=== PATIENT | female | born 1955 | race Two or more races ===

== ENCOUNTER 2024-09-29 07:00 | Outpatient (CLI) | payer OTHER ==
[~2024-09-29] VITALS: Ht 172.7 cm; Wt 84.4 kg
[2024-09-29] MEDS ORDERED: AVAPRO300 MG PO (08:45)
[2024-09-29 08:46] LABS: PH,URINE 5.5 (5.0-8.0); URINE APPEARANCE Clear; URINE BILIRRUBIN Negative (NEGATIVE); URINE BLOOD Negative; URINE COLOR Yellow; URINE GLUCOSE Negative (NEGATIVE); URINE KETONE Negative (NEGATIVE); URINE LEUKOCYTE Negative; URINE NITRATE Negative; URINE PROTEIN Negative (NEGATIVE)
[2024-09-29] MEDS ORDERED: LIPITOR40 M1 PO (08:46)
[2024-09-29] MEDS ORDERED: MONTELUKAST SODI4 M1 PO (08:46)
[2024-09-29] MEDS ORDERED: ALDACTONE25 MG PO (08:47)
[2024-09-29] MEDS ORDERED: PROAIR RESPICL90 MCG IH (08:47)
[2024-09-29] MEDS ORDERED: METFORMIN HCL500 MG (08:47)
[2024-09-29 08:49] LABS: HEMATOCRIT 32.8 % (36.0-45.00); HEMOGLOBIN 11.2 g/dL (12.0-15.00); MEAN CELL VOLUME 89.4 fL (80.00-100.00); MEAN CORPUSCULAR HEMOGLOBIN 30.4 pg (27.00-32.0); MEAN CORPUSCULAR HGB CONC 34.1 g/dl (32.0-36.0); PLATELET COUNT 257 K/uL (150-450); RED BLOOD COUNT 3.66 M/uL (4.00-6.00); RED CELL DISTRIBUTION WIDTH 14.1 % (11.5-14.5)
[2024-09-29 08:51] LABS: URINE BACTERIA 646.2 uL (0.0-1933); URINE EPITHELIAL CELLS 12.5 uL (0.0-38.8); URINE RBC 26.5 uL (0.0-20.8); URINE WBC 3.6 uL (0.0-23.2)
[2024-09-29 08:52] VITALS: BP 135/70
[2024-09-29 09:00] LABS: COVID-19 AG NEGATIVE (NEGATIVE)
[2024-09-29 09:23] LABS: INR 0.97; PARTIAL THROMBOPLASTIN TIME 26.7 SECONDS (22.0-34.0); PROTHROMBIN TIME 10.6 SECONDS (9.0-11.5)
[2024-09-29 09:31] LABS: ALBUMIN 3.7 gm/dL (3.4-5.0); BILIRUBIN TOTAL 0.85 mg/dL (0.3-1.2); CALCIUM 9.1 mg/dL (8.5-10.1); CHOL HDL RATIO 2.5 (0-5.0); CREATININE SERUM 0.83 mg/dL (0.55-1.02); GFR 67.96; GLOBULINA 3.2 G/DL (2.4-3.5); POTASSIUM 4.28 mEq/L (3.5-5.1); TOTAL PROTEIN 6.9 gm/dL (6.4-8.2)
[2024-09-29 10:10] LABS: RH POSITIVE
== END 2024-09-29 07:15 | disposition home or self-care (01) ==
LOC: RAD 07:00 → LAB 07:00 → EDSTATUS 10-06 07:45 → SURH 10-06 07:45
PROVIDERS: ATTEND Orthopaedic Surgery
DX: T84.032A Mechanical loosening of internal right knee prosthetic joint, initial encounter (principal); D64.9 Anemia, unspecified; R10.9 Unspecified abdominal pain; Z79.01 Long term (current) use of anticoagulants; N39.0 Urinary tract infection, site not specified; E78.5 Hyperlipidemia, unspecified; R05.2 Subacute cough; D68.9 Coagulation defect, unspecified; Z03.818 Encounter for observation for suspected exposure to other biological agents ruled out; Z20.828 Contact with and (suspected) exposure to other viral communicable diseases

== ENCOUNTER → 2024-10-27 07:42 | Outpatient (CLI) | payer OTHER ==
[~2024-10-27 07:42] MED LIST: ALDACTONE25 MG PO; AVAPRO300 MG PO; LIPITOR40 M1 PO; METFORMIN HCL500 MG; MONTELUKAST SODI4 M1 PO; PROAIR RESPICL90 MCG IH
[2024-10-27 08:17] LABS: BASO % 0.7 % (0.1-1.2); EOS # 0.24 (0.04-0.54); EOS % 5.9 % (0.7-7.0); HEMOGLOBIN 10.9 g/dL (11.2-15.7); LYMPH # 1.11 (1.18-3.74); LYMPH % 27.1 % (19.3-53.1); MEAN CORPUSCULAR HEMOGLOBIN 29.5 pg (25.6-32.2); MONO # 0.38 (0.24-0.82); MONO % 9.3 % (4.7-12.5); NEUT # 2.33 (1.56-6.13); PLATELET COUNT 260 K/uL (163-369); RED BLOOD COUNT 3.69 M/uL (3.93-5.22); RED CELL DISTRIBUTION WIDTH 13.4 % (11.6-14.4)
[2024-10-27 08:40] LABS: PH,URINE 5.5 (5.0-8.0); URINE APPEARANCE Clear; URINE BILIRRUBIN Negative (NEGATIVE); URINE BLOOD Negative; URINE COLOR Yellow; URINE GLUCOSE Negative (NEGATIVE); URINE KETONE Negative (NEGATIVE); URINE LEUKOCYTE Negative; URINE NITRATE Negative; URINE PROTEIN Negative (NEGATIVE); URINE UROBILINOGEN 0.2 E.U./dl
[2024-10-27 08:42] LABS: INR 0.95; PARTIAL THROMBOPLASTIN TIME 26.2 SECONDS (22.0-34.0); PROTHROMBIN TIME 10.4 SECONDS (9.0-11.5)
[2024-10-27 08:49] LABS: URINE EPITHELIAL CELLS 24.9 uL (0.0-38.8); URINE RBC 8.6 uL (0.0-20.8); URINE WBC 5.8 uL (0.0-23.2)
[2024-10-27 08:55] LABS: COVID-19 AG NEGATIVE (NEGATIVE)
[2024-10-27 13:28] LABS: ALBUMIN 3.6 gm/dL (3.4-5.0); BILIRUBIN TOTAL 0.67 mg/dL (0.3-1.2); CALCIUM 9.2 mg/dL (8.5-10.1); CREATININE SERUM 0.84 mg/dL (0.55-1.02); GFR 67.03; POTASSIUM 4.2 mEq/L (3.5-5.1); TOTAL PROTEIN 6.6 gm/dL (6.4-8.2)
== END | disposition home or self-care (01) ==
LOC: LAB 07:42
PROVIDERS: ATTEND Orthopaedic Surgery
DX: D64.9 Anemia, unspecified (principal); R10.9 Unspecified abdominal pain; Z79.01 Long term (current) use of anticoagulants; N39.0 Urinary tract infection, site not specified; E78.5 Hyperlipidemia, unspecified; R05.2 Subacute cough

== ENCOUNTER 2024-10-27 08:28 | Inpatient (IN) | payer OTHER ==
[~2024-10-27] VITALS: Ht 172.7 cm; Wt 85.7 kg
[2024-10-27 09:00] VITALS: BP 115/74
[2024-11-03] MEDS ORDERED: CEFAZOLIN SODIUM 1,000 MG VIAL ONE (07:47)
[2024-11-03] MEDS ORDERED: TRANEXAMIC ACID 100MG/1ML (1000MG) AMPUL IV ONE (07:51)
[2024-11-03] MEDS ORDERED: KETOROLAC TROMETHAMINE 60 MG VIAL IM ONE (09:32)
[2024-11-03] MEDS ORDERED: POVIDONE-IODINE 118 ML BOTT TOP ONE (09:32)
[2024-11-03] MEDS ORDERED: LIDOCAINE HCL 1%/EPINEPHRINE 20ML VIAL IJ ONE (09:33)
[2024-11-03] MEDS ORDERED: ISOPROPYL ALCOHOL 30 ML OUNCE TOP ONE (09:33)
[2024-11-03] MEDS ORDERED: BUPIVACAINE HCL/MPF 0.5% 30ML VIAL ONE (09:33)
[2024-11-03] MEDS ORDERED: VANCOMYCIN HCL 1,000 MG VIAL ONE ×2 (09:37→09:38)
[2024-11-03] MEDS ORDERED: OxyCODONE HCL 5 MG TABLET (ROXICODONE) PO PRN (15:00)
[2024-11-03] MEDS ORDERED: ONDANSETRON HCL 2 MG/ML VIAL IV PRN (15:00)
[2024-11-03] MEDS ORDERED: SODIUM CHLORIDE 0.45 % 1,000 ML IV SCH (15:00)
[2024-11-03] MEDS ORDERED: MORPHINE SULFATE 4 MG/ML CARTRIDGE IV PRN (15:00)
[2024-11-03] MEDS ORDERED: CEFAZOLIN SODIUM 1,000 MG VIAL IV SCH (17:00)
[2024-11-03] MEDS ORDERED: MONTELUKAST SODIUM 10 MG TABLET PO SCH (17:00)
[2024-11-03] MEDS ORDERED: GABAPENTIN 300 MG CAPSULE PO SCH (17:00)
[2024-11-03] MEDS ORDERED: ACETAMINOPHEN 500 MG GEL..CAP PO SCH (18:00)
[2024-11-03 18:20] VITALS: BP 130/74; O2SAT 98
[2024-11-03] MEDS ORDERED: FAMOtidine 20 MG TABLET PO SCH (21:00)
[2024-11-04 00:15] VITALS: BP 109/64; O2SAT 100
[2024-11-04 06:46] LABS: BASO % 0.3 % (0.1-1.2); EOS # 0.13 (0.04-0.54); EOS % 1.8 % (0.7-7.0); LYMPH # 0.69 (1.18-3.74); LYMPH % 9.8 % (19.3-53.1); MEAN CORPUSCULAR HEMOGLOBIN 29.5 pg (25.6-32.2); MONO # 0.62 (0.24-0.82); MONO % 8.8 % (4.7-12.5); NEUT # 5.55 (1.56-6.13); PLATELET COUNT 235 K/uL (163-369); RED BLOOD COUNT 2.95 M/uL (3.93-5.22); RED CELL DISTRIBUTION WIDTH 13.5 % (11.6-14.4)
[2024-11-04 06:58] LABS: HEMATOCRIT 25.9 % (34.1-44.9); HEMOGLOBIN 8.7 g/dL (11.2-15.7)
[2024-11-04] MEDS ORDERED: ELIQUIS2.5 MG PO (08:15)
[2024-11-04] MEDS ORDERED: PERCOCET 5-3251 EACH PO (08:15)
[2024-11-04] MEDS ORDERED: CEFADROXIL500 MG PO (08:15)
[2024-11-04 08:51] VITALS: BP 108/61; O2SAT 96
[2024-11-04] MEDS ORDERED: SENNOSIDES 1 TAB TABLET PO SCH (09:00)
[2024-11-04] MEDS ORDERED: SPIRONOLACTONE 25 MG TABLET PO SCH (09:00)
[2024-11-04] MEDS ORDERED: IRBESARTAN 300 MG TABLET PO SCH (09:00)
[2024-11-04] MEDS ORDERED: APIXABAN 2.5 MG TABLET PO SCH (09:00)
[2024-11-04] MEDS ORDERED: SOD FERRIC GLUC COMPLX/SUCROSE 62.5 MG/5 ML AMPUL IV SCH (12:36)
[2024-11-04] MEDS ORDERED: Cyanocobalamin/Mecobalamin 1 TAB.SL SL SCH (12:36)
[2024-11-04] MEDS ORDERED: FUROsemide 20 MG/2 ML VIAL IV SCH (12:45)
[2024-11-04] MEDS ORDERED: VITAMIN B COMPLEX 1 EACH PO SCH (17:00)
[2024-11-04 17:36] LABS: COVID-19 AG NEGATIVE (NEGATIVE)
[2024-11-04 19:24] VITALS: BP 116/63; O2SAT 99
[2024-11-05 01:00] VITALS: BP 118/74; O2SAT 99
[2024-11-05 08:52] VITALS: BP 134/75; O2SAT 93
[2024-11-05] MEDS ORDERED: IRON FUM,PS/FOLIC ACID/VITC/B3 1 CAP CAPSULE PO SCH (09:00)
[2024-11-05 14:45] LABS: BASO % 0.3 % (0.1-1.2); EOS # 0.33 (0.04-0.54); EOS % 3.7 % (0.7-7.0); HEMATOCRIT 34.7 % (34.1-44.9); HEMOGLOBIN 11.6 g/dL (11.2-15.7); LYMPH # 1.06 (1.18-3.74); LYMPH % 11.8 % (19.3-53.1); MEAN CORPUSCULAR HEMOGLOBIN 29.3 pg (25.6-32.2); MONO # 0.68 (0.24-0.82); MONO % 7.6 % (4.7-12.5); NEUT # 6.83 (1.56-6.13); NEUT % 76.2 % (34.0-71.1); PLATELET COUNT 218 K/uL (163-369); RED BLOOD COUNT 3.96 M/uL (3.93-5.22); RED CELL DISTRIBUTION WIDTH 14.3 % (11.6-14.4)
[2024-11-05 16:00] VITALS: BP 118/69; O2SAT 95
== END 2024-11-05 23:22 | DRG 467 ==
LOC: O/R 11-03 07:41 → SURG 11-03 08:26
PROVIDERS: ADMIT Orthopaedic Surgery; ATTEND Orthopaedic Surgery
PROC: 0SRC0J9 Replacement of Right Knee Joint with Synthetic Substitute, Cemented, Open Approach (ICD-10-PCS; 2024-11-03)
PROC: 0SPC0JZ Removal of Synthetic Substitute from Right Knee Joint, Open Approach (ICD-10-PCS; principal; 2024-11-03 13:15)
PROC: 30233N1 Transfusion of Nonautologous Red Blood Cells into Peripheral Vein, Percutaneous Approach (ICD-10-PCS; 2024-11-04)
DX: T84.032A Mechanical loosening of internal right knee prosthetic joint, initial encounter (principal); D62 Acute posthemorrhagic anemia; M17.11 Unilateral primary osteoarthritis, right knee; M85.461 Solitary bone cyst, right tibia and fibula; M25.661 Stiffness of right knee, not elsewhere classified; I10 Essential (primary) hypertension